=== PATIENT | female | born 1970 | race Caucasian/White ===

== ENCOUNTER → 2017-01-19 | Emergency (ER) | payer SELFPAY ==
[~2017-01-19] VITALS: Ht 162.6 cm; Wt 52.2 kg
[~2017-01-19] MED LIST: BACITRACIN1 APPLIC TOPIC; Bacitracin Oint UD TOPIC ONE; Lidocaine 1% MPF 10mg/ml 5ml INJ ONE
[2017-01-19 19:02] VITALS: BP 140/79
--- NOTE | 2017-01-19 21:19 | Emergency Room Report ---
History of Present Illness General Chief Complaint: Laceration Source: Patient Present Illness HPI The patient is a 46-year-old female presenting for laceration to the right face. The patient states that she was gardening, tripped, and fell onto a stick. The patient denies loss of consciousness. Patient noticed pain and bleeding at the site. Patient now states she has no pain. Patient states last tetanus shot was within 2 years. The patient denies any other symptoms including nausea, vomiting, fever, chills, headache, dizziness Allergies: Coded Allergies: Olives (Verified Allergy, Unknown, 01/19/17) Patient History Past Medical History: see triage record Pertinent Family History: none Last Menstrual Period: 01/18/17 Now: No Reviewed Nursing Documentation: PMH: Agreed, PSxH: Agreed Nursing Documentation-PMH Past Medical History: No Stated History Review of Systems All Other Systems: negative except mentioned in HPI Physical Exam Vital Signs Date Time Temp Pulse Resp B/P Pulse Ox O2 Delivery O2 Flow Rate FiO2 01/19/17 17:39 98.1 86 16 140/79 100 Room Air Sp02 EP Interpretation: reviewed, normal General Appearance: no apparent distress, alert, GCS 15, non-toxic Head: normocephalic, atraumatic Eyes: bilateral eye PERRL, bilateral eye normal inspection ENT: hearing grossly normal, normal pharynx, no angioedema, normal voice Neck: full range of motion, supple/symm/no masses Musculoskeletal: back normal, gait/station normal, normal range of motion, non- tender Neurologic: alert, oriented x3, responsive, motor strength/tone normal, sensory intact, speech normal Psychiatric: judgement/insight normal, memory normal, mood/affect normal, no suicidal/homicidal ideation Skin: normal color, no rash, warm/dry, well hydrated, laceration - 4cm linear laceration to R face inferior and lateral to lip edge Lymphatic: no adenopathy Procedures Laceration/Wound Repair Laceration/Wound Repair : Consent: Verbal Wound Location: face Wound's Depth, Shape: linear Wound Length (cm): 4 Wound Explored: clean Irrigated w/ Saline (ccs): 200 Betadine Prep?: Yes Anesthesia: 1% Lidocaine Volume Anesthetic (ccs): 5 Wound Debrided: minimal Wound Repaired With: sutures Suture Size/Type: 6:0, proline Number of Sutures: 4 Layer Closure?: No Sterile Dressing Applied?: Yes Splint Applied?: No Sling Applied?: No Patient Tolerated: Well Complications: None Medical Decision Making PA Attestation Dr. Figueroa is my supervising physician. Patient management was discussed with my supervising physician Diagnostic Impression: Primary Impression: Laceration of face ER Course The patient is a 46-year-old female presenting for laceration to the right face Ddx considered include but not limited to fracture, tendon/ligament injury, avulsion, nerve damage PE: vitals WNL. NAD 4cm linear laceration to R face inferior and lateral to lip edge. Limited active bleeding. Tender to palpation. The wound was irrigated with normal saline and cleaned with betadine. A 27g needle was used to administer 5mL of lidocaine w,o epi for local anaesthesia. 4 sutures were placed with 6-0 prolene. The wound was well approximated and the patient tolerated the procedure well. The wound was then cleaned and bacitracin was applied. The patient will need to followup with PMD. Laceration care instructions are given. ER precautions given Last Vital Signs Date Time Temp Pulse Resp B/P Pulse Ox O2 Delivery O2 Flow Rate FiO2 01/19/17 19:02 98.1 16 140/79 100 Room Air 01/19/17 17:39 86 Status: improved Disposition: HOME, SELF-CARE Condition: Improved Scripts Bacitracin (Bacitracin Zinc) 15 Gm Oint...g. 1 APPLIC TOPIC TID, #15 GM Prov: BRENDA PAL 01/19/17 Referrals: NOT CHOSEN IPA/MD,REFERRING (PCP) Patient Instructions: Laceration Care, Adult, Facial Laceration Additional Instructions: I discussed my findings with the patient. All questions and concerns have been answered. Treatment and medication compliance have been addressed. I advised the patient that they need to follow up with PMD in 6-7 days for wound check and suture removal. If you are unable to see PMD, return to the ED in 6-7 days. Return to ED if pain remains or worsens, you notice discharge from the wound, the wound continues to bleed, the suture/s fall out, you notice a fever or chills, or for any reason. Patient is advised to keep the wound clean and apply an antibacterial ointment. Patient verbalized understanding of discharge instructions. BRENDA PAL Jan 19, 2017 21:19
== END | disposition home or self-care (01) ==
LOC: EMR 18:35
DX: S01.81XA Laceration without foreign body of other part of head, initial encounter (principal); W01.198A Fall on same level from slipping, tripping and stumbling with subsequent striking against other object, initial encounter; Y93.H2 Activity, gardening and landscaping; Y92.9 Unspecified place or not applicable; Y99.9 Unspecified external cause status

== ENCOUNTER 2018-11-24 02:48 | Emergency (ER) | payer SELFPAY ==
[~2018-11-24 02:48] MED LIST changes: -Bacitracin Oint UD TOPIC ONE; -Lidocaine 1% MPF 10mg/ml 5ml INJ ONE
--- NOTE | 2018-11-24 02:55 | NUR ---
ED Nurse Note: pt was not in the waiting room when called on first attemp.
--- NOTE | 2018-11-24 03:05 | NUR ---
ED Nurse Note: pt was not in the waiting room when called for the second attempt
--- NOTE | 2018-11-24 03:17 | NUR ---
ED Nurse Note: pt not present on the waiting room when called for the 3rd attempt.
== END 2018-11-24 03:17 | disposition left against medical advice (07) ==
LOC: EMR 03:17
DX: R58 Hemorrhage, not elsewhere classified (principal); Z53.21 Procedure and treatment not carried out due to patient leaving prior to being seen by health care provider

== ENCOUNTER 2019-12-03 00:03 | Emergency (ER) | payer MEDICAID ==
[~2019-12-03] VITALS: Ht 162.6 cm; Wt 54.4 kg
--- NOTE | 2019-12-03 00:10 | NUR ---
ED Nurse Note: PT WALKED IN TO ED FROM HOME C/O FEVER, CHILLS, COUGH, SOB, AND BODY ACHE. PT TEMP AT TRIAGE IS 100.3 PT VSS, NAD, ERMD AT BEDSIDE. WILL CONTINUE TO MONITOR PATIENT.
--- NOTE | 2019-12-03 00:15 | NUR ---
ED Nurse Note: XR AT BEDSIDE
--- NOTE | 2019-12-03 00:20 | NUR ---
ED Nurse Note: RT AT BEDSIDE
--- NOTE | 2019-12-03 00:27 | Emergency Room Report ---
History of Present Illness General Chief Complaint: Flu Like Symptoms Source: Patient Present Illness HPI This is a 49-year-old female who is a smoker. She has no past medical history. She presents with chief plaint of flulike illness. Onset was yesterday. She came in because she is worried that she may have coronavirus. She has no recent travel. She states she was in an [employer] yesterday. And she was in the lobby of the [place] hotel. She thinks that because she is in the public that she may have contacted coronavirus. No known exposure. She has fever chills and body pain. She has nausea and vomiting. She is coughing. Worse with inspiration. Better with rest. Coughing is nonproductive nature. Did not take anything for this. Denies any other complaint. Allergies: Coded Allergies: Olives (Verified Allergy, Unknown, 01/19/17) Patient History Past Medical History: see triage record, old chart reviewed Past Surgical History: none Pertinent Family History: none Social History: Reports: smoking Last Menstrual Period: n/a Now: No Immunizations: other Reviewed Nursing Documentation: PMH: Agreed; PSxH: Agreed Review of Systems Constitutional: Reports: chills, fever, malaise, weakness Eye: Denies: eye pain, blurred vision ENT: Denies: ear pain, nose congestion, throat swelling Respiratory: Reports: cough, shortness of breath Cardiovascular: Denies: chest pain, palpitations Gastrointestinal: Denies: abdominal pain, diarrhea, nausea, vomiting Musculoskeletal: Denies: back pain, joint pain Skin: Denies: rash Neurological: Denies: headache, numbness Endocrine: Denies: increased thirst, increased urine Hematologic/Lymphatic: Denies: easy bruising All Other Systems: negative except mentioned in HPI Physical Exam Vital Signs Date Time Temp Pulse Resp B/P (MAP) Pulse Ox O2 Delivery O2 Flow Rate FiO2 12/03/19 00:07 100.2 101 18 126/89 (101) 94 Room Air Vitals with low-grade fever Sp02 EP Interpretation: reviewed, normal General Appearance: well appearing, no apparent distress, alert Head: normocephalic, atraumatic Eyes: bilateral eye PERRL, bilateral eye EOMI ENT: hearing grossly normal, normal pharynx Neck: full range of motion, supple, no meningismus Respiratory: chest non-tender, normal breath sounds, other - Coughing with inspiration. Cardiovascular #1: regular rate, rhythm, no murmur Gastrointestinal: normal bowel sounds, non tender, no mass, no organomegaly, no bruit, non-distended Musculoskeletal: back normal, normal range of motion, gait/station normal Psychiatric: mood/affect normal Medical Decision Making Diagnostic Impression: Primary Impression: Influenza-like symptoms Additional Impression: Acute bronchitis with bronchospasm ER Course Patient with influenza-like illness. No evidence of sepsis, pneumonia, respiratory distress or other serious bacterial infection. I reassured the patient that unlikely that she has coronavirus. She has no direct exposure. She has no travel. Patient 1 testing but I told her there is no testing in the ER. If she is severe illnesses and exposure and got admitted to the hospital that we have to transfer her to [facility] and they can do testing through the [facility]. But she has none of those risk factors. Chest X-Ray Diagnostic Results Chest X-Ray Diagnostic Results : Chest X-Ray Ordered: Yes # of Views/Limited/Complete: 1 View Indication: Shortness of Breath EP Interpretation: Yes Interpretation: no consolidation, no effusion, no pneumothorax, no acute cardiopulmonary disease Impression: No acute disease Electronically Signed by: Sonny Menjivar MD Last Vital Signs Date Time Temp Pulse Resp B/P (MAP) Pulse Ox O2 Delivery O2 Flow Rate FiO2 12/03/19 00:07 100.2 101 18 126/89 (101) 94 Room Air Status: improved Disposition: HOME, SELF-CARE Condition: Stable Scripts Prednisone* (PREDNISONE*) 20 Mg Tablet 40 MG ORAL DAILY, #8 TAB Prov: Sonny Menjivar MD 12/03/19 Albuterol Sulfate* (ALBUTEROL SULFATE MDI*) 8.5 Gm Hfa.aer.ad 2 PUFF INH Q4H PRN for cough/wheezing, #1 EA 0 Refills Prov: Sonny Menjivar MD 12/03/19 Additional Instructions: Increase fluids. Stop smoking. Follow-up with your doctor in 7 days for recheck. Return if worse. Sonny Menjivar MD Dec 03, 2019 00:27
[2019-12-03] MEDS ORDERED: Albuterol ud Inhalation HHN ONE (00:30)
[2019-12-03 01:00] VITALS: BP 124/78
[2019-12-03] MEDS ORDERED: ALBUTEROL SULF8.5 GM INH (01:04)
[2019-12-03] MEDS ORDERED: PREDNISONE20 MG ORAL (01:04)
[2019-12-03 01:10] VITALS: BP 124/78
--- NOTE | 2019-12-03 01:10 | NUR ---
ER DISCHARGE NOTE: Patient is cleared to be discharged per ERMD, pt is aox4, on room air, with stable vital signs. pt was given dc and prescription instructions, pt was able to verbalize understanding, pt id band removed without complications. pt is able to ambulate with steady gait. pt took all belongings.
--- NOTE | 2019-12-03 12:21 | Diagnostic Imaging Report ---
Indication: Dyspnea Comparison: None A single view chest radiograph was obtained. Findings: Cardiomediastinal appearance is within normal limits for age. Lung volumes are low limiting evaluation but no obvious infiltrate seen. Pulmonary vascularity is grossly appropriate. The diaphragmatic contour is smooth and costophrenic angles are sharp. No pleural effusions are identified. The bones are unremarkable. Impression: No acute findings
== END 2019-12-03 01:10 | disposition home or self-care (01) ==
LOC: EMR 00:36
DX: J20.9 Acute bronchitis, unspecified (principal); R11.2 Nausea with vomiting, unspecified; Z87.891 Personal history of nicotine dependence; R50.9 Fever, unspecified; R53.83 Other fatigue
CPT/HCPCS: 71045; 86710; J7512; Z7502; 99284